=== PATIENT | female | born 1960 | race Caucasian/White ===

== ENCOUNTER 2020-01-11 05:38 | Outpatient (CLI) | payer OTHER ==
[~2020-01-11] VITALS: Ht 162.6 cm; Wt 45.9 kg
[2020-01-11] MEDS ORDERED: CYCL5.5D OU (13:46)
[2020-01-11] MEDS ORDERED: CLC600T PO (13:46)
== END 2020-01-11 13:49 ==
LOC: PREOP 05:38
PROVIDERS: ATTEND Surgery
DX: Z01.818 Encounter for other preprocedural examination (principal)

== ENCOUNTER 2020-01-18 06:10 | Day surgery (SDC) | payer BC, OTHER ==
[~2020-01-18] VITALS: Ht 162.6 cm; Wt 45.9 kg
[2020-01-18] VITALS (11 sets, daily range): BP systolic 124–180; BP diastolic 69–109
[~2020-01-18 06:10] MED LIST: CLC600T PO; CYCL5.5D OU
[2020-01-18] MEDS ORDERED: ceFAZolin 2 GM IV Premixed 50 ML IV ONE (07:00)
[2020-01-18] MEDS: LACTATED RINGERS 1,000 ML IV PRN ×2 (07:38→09:35)
--- NOTE | 2020-01-18 08:08 | Progress Note-Pre Operative ---
Pre-Operative Progress Note H&P Reviewed The H&P was reviewed, patient examined and no changes noted. Time Seen by Provider: 08:06 Date H&P Reviewed: Jan 18, 2020 Time H&P Reviewed: 08:07 Pre-Operative Diagnosis: Right ear Basal Cell, Right leg melenoma (both marked) JACINTO SKAGGS DO Jan 18, 2020 08:08
--- NOTE | 2020-01-18 08:31 | Diagnostic Imaging Report ---
INDICATION: Melanoma of the right lower extremity. 1.1 mCi technetium 99m sulfa colloid was injected around the melanoma site in the right lower extremity in 4 separate aliquots. Imaging over the area was performed. 3 lymph nodes were marked in the right groin region. Patient tolerated procedure well. IMPRESSION: Lymphoscintigraphy for identification of sentinel nodes in the right groin. Dictated by: Dictated on workstation # [id number]
[2020-01-18] MEDS ORDERED: BUP/EPI 0.25% 1:200,000 (MARCAINE) 30 ML VIAL ONE (08:37)
[2020-01-18] MEDS ORDERED: BUPIVACAINE 0.5% 30 ML (SENSORCAINE) VIAL ONE (08:37)
[2020-01-18] MEDS ORDERED: ONDANSETRON 4 MG/2 ML (SDV) Z0FRAN ONE ×2 (08:38→10:05)
[2020-01-18] MEDS ORDERED: FAMOTIDINE 20MG/2ML IV (PEPCID) ONE (08:41)
[2020-01-18] MEDS ORDERED: MIDAZOLAM 2 MG/2 ML (VERSED) VIAL ONE (08:44)
[2020-01-18] MEDS ORDERED: fentaNYL INJECTION 100 MCG/2 ML AMP ONE (08:45)
[2020-01-18] MEDS ORDERED: FAMOTIDINE 20MG/2ML IV (PEPCID) IV ONE (08:45)
[2020-01-18] MEDS ORDERED: ONDANSETRON 4 MG/2 ML (SDV) Z0FRAN IV ONE (08:45)
[2020-01-18] MEDS ORDERED: METHYLENE BLUE 0.5% (PROVAYBLUE) 50 mg/10 ml vial IV ONE (09:08)
[2020-01-18] MEDS ORDERED: PROPOFOL INJECTION 50 ML IV ONE (09:20)
[2020-01-18] MEDS ORDERED: LIDOCAINE PF 2% 5 ML (XYLOCAINE) VIAL ONE (09:20)
[2020-01-18] MEDS ORDERED: proPOfol 200 MG/20 ML (DIPRIVAN) VIAL IV ONE (09:20)
[2020-01-18] MEDS ORDERED: HYDR-4226 PO (10:13)
--- NOTE | 2020-01-18 10:13 | Progress Note-Post Operative ---
Post-Operative Progess Note Surgeon (s)/Painter (s) Surgeon JACINTO SKAGGS DO Painter: CONSUELO Kirk Pre-Operative Diagnosis Right ear Basal Cell, Right leg melenoma (both marked) Post-Operative Diagnosis same pending path Procedure & Operative Findings Date of Procedure 01/18/20 Procedure Performed/Findings Exc Basal cell right ear, 3.1 x 1cm Exc melanoma right leg 7.[address] bx right inguinal Anesthesia Type LMA Estimated Blood Loss Estimated blood loss (mL): scant Specimens/Packing Specimens Removed Right ear basal cell Right leg melanoma right inguinal LN x 2 JACINTO SKAGGS DO Jan 18, 2020 10:12
--- NOTE | 2020-01-18 10:14 | Discharge Inst-Surgical ---
Discharge Inst-Surgical Depart Medication/Instructions New, Converted or Re-Newed RX: RX Given to Pt/Family Patient Instructions Follow up Appt: Make appointment for 1 week. [phone] Instructions: No lifting greater than 20 pounds. No strenuous activity. May shower in 24 hours, no tub bath or soaking. Use incentive spirometer at home as directed. No Smoking Skin/Wound Care: May remove bandages in am. You need to leave the Dermabond on incision it will fall off on it's own. Symptoms to Report: Appetite Changes, Extremity Discoloration, Numbness/Tingling, Swelling Increased, Bleeding Excessive, Eyesight Changes, Pain Increased, Urine Color Change, Constipation(Persistent), Fever over 101 degree F, Pain/Pressure in chest, Urinating Difficulty, Cough Up/Vomit Blood, Heart Beat Irreg/Pounding, Pain/Pressure in jaw, Cramps in feet or legs, Lightheadedness, Pain/Pressure in shoulder, Diarrhea(Persistent), Memory Changes Suddenly, Questions/Concerns, Weight gain consecutive days, Dizziness/Fainting, Nausea/Vomiting, Shortness of Breath, Weight gain over 2 pounds If questions or concerns contact your physician Or seek help at emergency department. Activity Activity Instructions: Avoid Stress to Incision Driving Instructions: No Driving/Refer to Dr. Castellanos Discharge Diet: No Restrictions Diet After 24 Hours: Clear Liquid if Nauseous If Any Problems/Questions/Issu: Contact Your Physician, Go to Emergency Room Skin/Wound Care Infection Signs and Symptoms: Increased Redness, Foul Odor of Wound, Increased Drainage, Skin Itchy or Has a Rash, Increased Swelling, Temperature Above 101 F Bathing Instructions: Shower Stitches/Kathryn/Dermabond Dis: JACINTO Silvestre DO Jan 18, 2020 10:14
--- NOTE | 2020-01-19 05:03 | OPERATIVE REPORT ---
DATE OF SERVICE: 01/18/2020 PREOPERATIVE DIAGNOSES: 1. 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 2. Right lower leg melanoma. 3. Lymph nodes. PROCEDURES: 1. 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 2. Excision of melanoma, right leg, 7.3 x 3 cm incision. 3. Crowell lymph node biopsy. 4. Injection of blue dye. SURGEON: Hector Baird DO. DIVISION SERGEANT: Stefania Contreras MS3. ANESTHESIA: LMA. SPECIMEN: 1. Right preauricular basal cell. 2. Right leg melanoma. 3. Crowell lymph nodes from the right inguinal region. BLOOD LOSS: Scant. FLUIDS: Per anesthesia. POSTOPERATIVE CONDITION: Stable. INDICATION FOR PROCEDURE: The patient is a 59-year-old female who had a basal cell carcinoma found shaved on the preauricular area to the right ear. She also had a melanoma shaved in the right lower leg in the medial aspect of the reddy and needed to get this excised and needed to do a sentinel lymph node biopsy. FINDINGS: The patient had a right preauricular mass removed as well as a right lower leg melanoma removed. She did have some lymph nodes removed, but they were most likely not the sentinel nodes. Crowell node at the site was 3597 for the Neoprobe, 16 over the sentinel node when we opened the incision was 60 in vivo, but these were all deep inguinal lymph nodes. We did not go after these. PROCEDURE NOTE: After informed consent was obtained, the patient was brought to the operating room, placed on the operating table in supine position. She was sterilely prepped and draped in normal fashion. We used 3 different set up, started with the ear, injected the skin with local, then made an incision going to try to get a good margin around this basal cell carcinoma. This was just in front of the ear and down by the earlobe. This incision measured 3.1 x 1 cm made with #15 blade, carried down through skin and subcutaneous tissue, deepened down to subcutaneous tissue with Bovie electrocautery going around it and removing this, hemostasis obtained using Bovie electrocautery, then elected to close the incision with 4-0 undyed Monocryl, 5 interrupted subcuticular stitches. I turned our attention to the right lower leg melanoma. Just before we started the procedure, we had injected around this with methylene blue, 0.5 mL at the 3 o'clock, 6 o'clock, 9 o'clock, 12 o'clock positions and massaged for 5 minutes. Had also checked with the Neoprobe and got a reading of 3597 at this site, 16 up at the sites in her inguinal region. Right lower leg was sterilely prepped and draped in normal fashion. Local lidocaine was used to infiltrate the skin and then made an incision, made a 7.3 x 3 cm incision to try and get a good 1 cm margins around this melanoma, carried down through the skin into subcutaneous tissue with #15 blade and deepened down to subcutaneous tissue with Bovie electrocautery, removing all this and then creating flaps medially and laterally to be able to bring the skin together, closed the skin with 3-0 nylon, 4 vertical mattress suture and then 7 simple sutures to close this. At this time, we then changed gloves and switched into another set up to do the sentinel lymph node biopsy, made an incision in the inguinal crease. There were 3 lymph nodes that were seen on lymphoscintigraphy. Used the Neoprobe to findings and then made an incision just below the inguinal canal, carefully dissected with a hemostat, able to see 2 lymph nodes. removed these, but neither one of these were hot and then placed the Neoprobe on the inguinal ligament and the hot nodes were all below this. They were all deep inguinal lymph node. We are not going after these today. So, at this point, copiously irrigated with normal saline. Closed the incision with a 4 undyed Monocryl and subcuticular stitch. Area was cleaned and dried. Dermabond and dressings placed over all the incisions. The patient tolerated the procedure. She was transferred to recovery room in stable condition. Sponge, instrument and needle count correct at the end of the case. Job ID: [id number] DocumentID: [id number] Dictated Date: 01/18/2020 17:18:05 Cupola Liner Helper Date: 01/19/2020 03:42:29 Dictated By: DO JOSE ANGEL MILLER
--- NOTE | 2020-01-23 07:45 | Anesthesia-General Post-Op ---
General Patient Condition Mental Status/LOC: Same as Preop Cardiovascular: Satisfactory Nausea/Vomiting: Absent Respiratory: Satisfactory Pain: Controlled Complications: Absent Post Op Complications Complications None Follow Up Care/Instructions Patient Instructions None needed. Anesthesia/Patient Condition Patient Condition Patient is doing well, no complaints, stable vital signs, no apparent adverse anesthesia problems. No complications reported per nursing. ISIDORO HERNANDEZ CRNA Jan 23, 2020 07:45
== END 2020-01-18 12:15 | disposition home or self-care (01) ==
LOC: CARD 06:10
PROVIDERS: ATTEND Surgery
DX: C44.212 Basal cell carcinoma of skin of right ear and external auricular canal (principal); C43.71 Malignant melanoma of right lower limb, including hip; Z11.2 Encounter for screening for other bacterial diseases
CPT/HCPCS: 11606; 11644; 38531; 78195; 87081; A9541; 88305; 88307; 88344